=== PATIENT | female | born 1955 | race Caucasian/White ===

== ENCOUNTER 2023-11-22 13:49 | Emergency (ER) | payer MEDICARE, OTHER, SELFPAY ==
[2023-11-22] VITALS (7 sets, daily range): BP systolic 128–173; BP diastolic 69–89; BMI 32.9
[2023-11-22 14:31] LABS: % Basophils 0.2 % (0-2); % Eosinophils 2.1 % (0-6); % Immature Granulocytes 0.4 % (0-0.5); % Lymphocytes 22.2 % (20.5-51.1); % Neutrophils 67.1 % (42.2-75.2); Absolute Eosinophils 0.1 10^3/uL (0-0.7); Absolute Lymphocytes 1.1 10^3/uL (1.2-3.4); Absolute Monocytes 0.4 10^3/uL (0.1-0.6); Absolute Neutrophils 3.2 10^3/uL (1.4-6.5); Hematocrit 36.9 % (37.0-47.0); Mean Corp Hgb Conc. 35.2 g/dL (33.0-37.0); Mean Corpuscular Hgb 32.6 pg (27.0-31.0); Mean Corpuscular Volume 92.5 fL (81.0-99.0); Mean Platelet Volume 10.7 fL (7.4-10.4); Nucleated Red Blood Cells % 0 %; Platelet Count 161 10^3/uL (130-400); Red Blood Cell Count 3.99 10^6/uL (4.20-5.40); Red Cell Dist. Width 11.9 % (11.5-14.5); White Blood Cell Count 4.8 10^3/uL (4.8-10.8)
[2023-11-22 14:42] LABS: ALT (SGPT) 30 U/L (0-35); AST (SGOT) 36 U/L (14-36); Albumin 4.5 g/dl (3.5-5.0); Alkaline Phosphatase 71 U/L (38-126); Blood Urea Nitrogen 17 mg/dl (7-17); Calcium 9.1 mg/dl (8.4-10.2); Carbon Dioxide 25 mmol/L (22-30); Chloride 107 mmol/L (98-107); Glucose 106 mg/dl (70-99); Potassium 3.9 mmol/L (3.5-5.1); Sodium 138 mmol/L (135-145); Total Bilirubin 0.6 mg/dl (0.2-1.3); Total Protein 7.4 g/dl (6.3-8.2); eGFR > 60.00
--- NOTE | 2023-11-22 17:52 | ED.GENMED ---
History of Present Illness
General
Chief Complaint: Fainting Sensation
Time Seen by Provider: 11/22/23 14:51
Travel History
Have you had any contact with someone who has COVID-19?: No
Do you have any symptoms of coronavirus? Fever > 100 degrees, chills, cough, shortness of breath, sore throat, loss of taste or smell, muscle aches, or headache?: No
History of Present Illness
History of Present Illness:
68-year-old female presents to the emergency room complaining of feeling woozy or dizzy. Symptoms began while she was driving. Lasted for several minutes. No headache. No focal weakness numbness or tingling. Movement of the head seems to make
symptoms worse. Patient had a similar episode in July. No clear cause was found at that time.
Past History
Past History
ED Past Medical History: Hypercholesterolemia; Negative IDDM or NIDDM
ED Past Surgical History: Negative Cardiac
Patient has exhibited threatening behavior?: No
Social History
Tobacco: Former smoker
Alcohol: Occasional
Drug: None
Personal:
Living: with family
Employment: Retired
Family History
Family History: CAD
Phy Exam
Physical Exam
Physical Exam:
General: Awake, Alert, Oriented X3. No acute distress.
Vitals: unremarkable
Head: Atraumatic
Eyes: Pupils equal, EOMI, no nystagmus
Throat: Airway intact, no exudates
Neck: Trachea midline
Lungs: Clear and equal b/l
Heart: Regular rate, no murmurs
Abd: Soft, Nontender, No pulsatile mass
Neuro: Cranial nerves intact, muscle strength equal bilaterally, cerebellar exam normal
Skin: Warm, dry, no rash
Extremities: pulses equal b/l, no edema
Course
Orders/Labs/Results
Orders:
Orders
11/22/23 14:00
Electrocardiogram (*1) Urgent
Reason for Study: Other
Other Reason for Exam: near syncope
11/22/23 14:01
EKG- Treatment ONCE
11/22/23 14:22
Complete Blood Count/With Diff Urgent
Comprehensive Metabolic Panel Urgent
11/22/23 15:20
Pt Eval And Treat Urgent
Treatment: vestibular dysfunction
Activity Level: As Tolerated
Abnormal Lab Results
11/22/23
14:22
RBC 3.99 L 10^6/uL
(4.20-5.40)
Hct 36.9 L %
(37.0-47.0)
MCH 32.6 H pg
(27.0-31.0)
MPV 10.7 H fL
(7.4-10.4)
Absolute Lymphs (auto) 1.1 L 10^3/uL
(1.2-3.4)
Glucose 106 H mg/dl
(70-99)
11/22/23 14:22
11/22/23 14:22
Vital Signs
Initial and Last Documented VS:
Initial Vital Signs
Temp Pulse Resp BP Pulse Ox
97.9 F 93 16 173/89 98
11/22/23 13:57 11/22/23 13:57 11/22/23 13:57 11/22/23 13:57 11/22/23 13:57
Last Documented Vital Signs
Temp Pulse Resp BP Pulse Ox
97.9 F 80 17 140/80 100
11/22/23 13:57 11/22/23 17:55 11/22/23 17:55 11/22/23 17:55 11/22/23 15:15
MDM/Problems Addressed
Differential Diagnosis Includes:
Benign paroxysmal positional vertigo, labyrinthitis, dehydration, dysrhythmia
MDM/Problems Addressed:
Patient has a normal neurologic exam here in the emergency room. That she is nervous to get up and move when she actually does so she seems to be asymptomatic. My suspicion is that this is benign paroxysmal positional vertigo. However will
recommend patient follow-up with her primary care doctor and ENT for further evaluation. No physical exam findings to suggest a central cause for her symptoms.
*Pulse Oximetry
Patient hypoxic: no
*EKG
Interpreted by ED Provider?: Yes
Interpretation: normal
Heart Rate: 86
Rate: normal
Rhythm: sinus
[place]: normal axis
Interval: normal interval
QRS Pattern: normal QRS
Ischemia: no ischemia
*Associate Professor Of Philosophy Interpretation
Rate: normal
Interpretation: normal
Rhythm: sinus
*Critical Care Note
Total Time (30-74mins, 75-104mins- exclusive of procedures): Not Applicable
ED Attending Note
-
Portions of this chart may have been created with voice recognition software.� Occasional wrong word or��sound alike� substitutions may have occurred due to the inherent limitations of voice recognition software.
Discharge Plan
Departure
Patient Disposition: Home (Routine Discharge)
Date of Disposition: 11/22/23
Time of Disposition: 17:52
Patient with high blood pressure during this ER visit?: Yes
Condition: Good
Discharge Problem:
Benign paroxysmal positional vertigo, Near syncope
Instructions: Near Fainting (DC), Vertigo ED, BLOOD PRESSURE
Prescriptions:
No Action
multivitamin 1 EACH tablet
1 ea PO DAILY
rosuvastatin 5 MG tablet
5 mg PO HS
Referrals:
Milly Allan MD [Family Provider] -
Eli Way MD [Active] -
Interventions
Interventions:
*Risk Screen - Suicide Last Done: 11/22/23 14:41
*General Assessment Last Done: 11/22/23 14:41
*Neglect/Abuse Screening Last Done: 11/22/23 14:41
*ED COVID-19 Vaccine History Last Done: 11/22/23 13:57
*Nursing Disposition Last Done: 11/22/23 18:00
ED- Neurological Assessment Last Done: 11/22/23 14:41
ED- Cardiac Assessment Last Done: 11/22/23 14:41
Discharge Date and Time
Discharge Date/Time: 11/22/23 18:01
== END 2023-11-22 18:01 | disposition home or self-care (01) ==
LOC: EMR 13:49
PROVIDERS: EMERGENCY PHYSICIAN Emergency Medicine; FAMILY PHYSICIAN Family Medicine
DX: H81.10 Benign paroxysmal vertigo, unspecified ear (principal); R55 Syncope and collapse; E78.00 Pure hypercholesterolemia, unspecified; Z82.49 Family history of ischemic heart disease and other diseases of the circulatory system; Z87.891 Personal history of nicotine dependence
CPT/HCPCS: 99283; 80053; 85025; 93005

== ENCOUNTER 2024-02-08 04:35 | Emergency (ER) | payer MEDICARE, OTHER, SELFPAY ==
[2024-02-08 04:39] VITALS: BP 167/87
[2024-02-08 04:55] VITALS: BP 153/75
[2024-02-08 05:00] VITALS: BP 139/65
--- NOTE | 2024-02-08 05:00 | ED.GENMED ---
History of Present Illness
General
Chief Complaint: Heart Rate Problem
Source: patient
Exam Limitations: none
Time Seen by Provider: 02/08/24 04:47
Travel History
Have you had any contact with someone who has COVID-19?: No
Do you have any symptoms of coronavirus? Fever > 100 degrees, chills, cough, shortness of breath, sore throat, loss of taste or smell, muscle aches, or headache?: No
History of Present Illness
History of Present Illness:
See MDM
Past History
Past History
ED Past Medical History: Hypercholesterolemia; Negative IDDM or NIDDM
ED Past Surgical History: Negative Cardiac
Patient has exhibited threatening behavior?: No
Social History
Tobacco: Former smoker
Alcohol: Occasional
Drug: None
Personal:
Living: with family
Employment: Retired
Family History
Family History: CAD
Phy Exam
Physical Exam
Physical Exam:
See MDM
Course
Orders/Labs/Results
Orders:
Orders
02/08/24 04:44
ECG [Electrocardiogram (*1)] Urgent
Reason for Study: Palpitations
Cardiology Consult: Osvaldo Duke
02/08/24 04:45
EKG- Treatment ONCE
02/08/24 05:25
Comprehensive Metabolic Panel Urgent
Free T4 Urgent
Magnesium Urgent
TSH Reflex To Free T4 Urgent
02/08/24 05:48
Complete Blood Count/With Diff Urgent
Comment: REDRAW
Abnormal Lab Results
02/08/24 02/08/24
05:25 05:48
WBC 3.5 L 10^3/uL
(4.8-10.8)
RBC 3.74 L 10^6/uL
(4.20-5.40)
Hgb 11.9 L g/dL
(12.0-16.0)
Hct 34.9 L %
(37.0-47.0)
MCH 31.8 H pg
(27.0-31.0)
MPV 11.4 H fL
(7.4-10.4)
Absolute Lymphs (auto) 1.0 L 10^3/uL
(1.2-3.4)
Monocytes % 9.8 H %
(1.7-9.3)
Chloride 109 H mmol/L
(98-107)
Glucose 102 H mg/dl
(70-99)
TSH (Reflex) 6.08 H uIU/ml
(0.47-4.68)
02/08/24 05:48
02/08/24 05:25
Vital Signs
Initial and Last Documented VS:
Initial Vital Signs
Temp Pulse Resp BP Pulse Ox
98.6 F 92 20 167/87 98
02/08/24 04:39 02/08/24 04:39 02/08/24 04:39 02/08/24 04:39 02/08/24 04:39
Last Documented Vital Signs
Temp Pulse Resp BP Pulse Ox
98.6 F 75 11 139/65 100
02/08/24 04:39 02/08/24 05:30 02/08/24 05:30 02/08/24 05:00 02/08/24 05:30
MDM/Problems Addressed
Differential Diagnosis Includes:
HPI and MDM Narrative:
68-year-old female presenting for palpitations. Patient states she woke up and felt that her heart was skipping. 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 When she was diagnosed with PVCs, she did see cardiology and
have a Holter monitor. She denies chest pain or shortness of breath. On arrival, she thinks her symptoms are improving somewhat. Patient was placed on the monitor immediately and she does have evidence of PVCs. EKG shows sinus rhythm. Will
obtain basic blood work.
Patient states she is on her last day of sulfa with active UTI. We discussed this could be side effects of medication
Physical exam
General: Well appearing and non-toxic
HEENT: protecting airway
Neck: appears supple
CV: No evidence of cyanosis. Regular rate and rhythm
Resp: No accessory muscle use
Abd: Non-distended
Extremities: No deformities. No leg edema
Neuro: alert
Psych: Normal affect
Skin: Intact
Problems Addressed including Acute and Chronic Conditions affecting care:
1. Palpitations
Acuity: acute
Prognosis: stable
Details: Likely PVCs. EKG sinus rhythm. Will obtain basic blood work
Updates
Patient remains well-appearing nontoxic. Intermittent PVCs noted. We discussed mildly elevated TSH and follow-up with PCP and Holter monitor
Differential Diagnosis (but not limited to): PVCs, paroxysmal A-fib, hyperthyroidism
Testing considered: Troponin but she denies chest pain
Drug therapy (if applicable): OTC meds, please see d/c instruction regarding Rx drugs
Amount and/or Complexity of Data Reviewed
Clinical info obtained from: Patient
External data reviewed: N/A
Labs I independently reviewed (but not limited to): Elevated TSH
Radiology: N/A
Pulse Ox: not hypoxic
EKG independently reviewed: Sinus rhythm, normal axis, no STEMI
Blue Print Control Clerk: Sinus rhythm, intermittent PVCs
Critical Care: N/A
Risk of Complication:
Social Determinants of health: Good social support
Discussed with other providers: N/A
Escalation of Care includes Admit/Obs: After being observed in the Emergency Department, pt stable for discharge.
Occasional wrong word or 'sound a like' substitutions may have occurred due to the inherent limitations of voice recognition software. Read the chart carefully and recognize, using context, where substitutions have occurred.
*Critical Care Note
Total Time (30-74mins, 75-104mins- exclusive of procedures): Not Applicable
ED Attending Note
-
Portions of this chart may have been created with voice recognition software.� Occasional wrong word or��sound alike� substitutions may have occurred due to the inherent limitations of voice recognition software.
Discharge Plan
Departure
Patient Disposition: Home (Routine Discharge)
Date of Disposition: 02/08/24
Time of Disposition: 06:39
Patient with high blood pressure during this ER visit?: No
Discharge Problem:
Heart palpitations
Instructions: Palpitations (DC)
Prescriptions:
No Action
multivitamin 1 EACH tablet
1 ea PO DAILY
rosuvastatin 5 MG tablet
5 mg PO HS
Referrals:
Milly Allan MD [Family Provider] -
Activity Restrictions/Additional Instructions:
Please return for any worsening symptoms.
You may return at any time if you have further concerns.
Please follow up with your doctor at the first available appointment, preferably this week. Please discuss another Holter monitor.
Thank you for choosing [facility].
Interventions
Interventions:
*Risk Screen - Suicide Last Done: 02/08/24 04:39
*General Assessment Last Done: 02/08/24 04:39
*Neglect/Abuse Screening Last Done: 02/08/24 04:39
ED- Fall Risk Assessment Last Done: 02/08/24 04:39
*ED COVID-19 Vaccine History Last Done: 02/08/24 04:39
ED- Cardiac Assessment Last Done: 02/08/24 04:55
ED- Pulmonary Assessment Last Done: 02/08/24 04:55
Discharge Date and Time
Print Language: ALBANIAN
[2024-02-08 05:51] LABS: ALT (SGPT) 26 U/L (0-35); AST (SGOT) 30 U/L (14-36); Albumin 4.1 g/dl (3.5-5.0); Alkaline Phosphatase 61 U/L (38-126); Blood Urea Nitrogen 15 mg/dl (7-17); Calcium 9.6 mg/dl (8.4-10.2); Carbon Dioxide 24 mmol/L (22-30); Chloride 109 mmol/L (98-107); Glucose 102 mg/dl (70-99); Magnesium 2.1 mg/dl (1.6-2.3); Potassium 4.8 mmol/L (3.5-5.1); Sodium 139 mmol/L (135-145); Total Bilirubin 0.4 mg/dl (0.2-1.3); Total Protein 6.8 g/dl (6.3-8.2); eGFR > 60.00
[2024-02-08 06:00] VITALS: BP 111/74
[2024-02-08 06:02] LABS: % Basophils 0.3 % (0-2); % Eosinophils 5.2 % (0-6); % Immature Granulocytes 0.3 % (0-0.5); % Lymphocytes 29.6 % (20.5-51.1); % Monocytes 9.8 % (1.7-9.3); % Neutrophils 54.8 % (42.2-75.2); Absolute Eosinophils 0.2 10^3/uL (0-0.7); Absolute Monocytes 0.3 10^3/uL (0.1-0.6); Absolute Neutrophils 1.9 10^3/uL (1.4-6.5); Hematocrit 34.9 % (37.0-47.0); Hemoglobin 11.9 g/dL (12.0-16.0); Mean Corp Hgb Conc. 34.1 g/dL (33.0-37.0); Mean Corpuscular Hgb 31.8 pg (27.0-31.0); Mean Corpuscular Volume 93.3 fL (81.0-99.0); Mean Platelet Volume 11.4 fL (7.4-10.4); Nucleated Red Blood Cells % 0 %; Platelet Count 132 10^3/uL (130-400); Red Blood Cell Count 3.74 10^6/uL (4.20-5.40); Red Cell Dist. Width 11.7 % (11.5-14.5); White Blood Cell Count 3.5 10^3/uL (4.8-10.8)
[2024-02-08 06:21] LABS: TSH Reflex To Free T4 6.08 uIU/ml (0.47-4.68)
[2024-02-08 06:50] LABS: Free T4 1.12 ng/dl (0.78-2.19)
[2024-02-08 07:00] VITALS: BP 104/61
== END 2024-02-08 07:10 | disposition home or self-care (01) ==
LOC: EMR 04:35
PROVIDERS: EMERGENCY PHYSICIAN Student in an Organized Health Care Education/Training Program; FAMILY PHYSICIAN Family Medicine
DX: R00.2 Palpitations (principal); I49.3 Ventricular premature depolarization; N39.0 Urinary tract infection, site not specified; E78.00 Pure hypercholesterolemia, unspecified; Z87.891 Personal history of nicotine dependence; Z88.8 Allergy status to other drugs, medicaments and biological substances; Z91.041 Radiographic dye allergy status
CPT/HCPCS: 99283; 80053; 83735; 84439; 84443; 85025; 93005

== ENCOUNTER → 2024-04-08 12:57 | Outpatient (REF) | payer MEDICARE, OTHER, SELFPAY | LOC: WDC 12:57 | PROVIDERS: ATTENDING PHYSICIAN Family Medicine | DX: Z12.31 Encounter for screening mammogram for malignant neoplasm of breast (principal) | CPT/HCPCS: 77063; 77067 ==

== ENCOUNTER → 2024-04-15 06:32 | Day surgery (SDC) | payer MEDICARE, OTHER, SELFPAY | LOC: GI 06:32 | PROVIDERS: ATTENDING PHYSICIAN Internal Medicine | DX: Z12.11 Encounter for screening for malignant neoplasm of colon (principal); K57.30 Diverticulosis of large intestine without perforation or abscess without bleeding; K62.1 Rectal polyp; K64.8 Other hemorrhoids | CPT/HCPCS: 45380; 88305 ==

== ENCOUNTER → 2024-05-14 17:02 | Outpatient (REF) | payer MEDICARE, OTHER, SELFPAY | LOC: MRI 3T 17:02 | PROVIDERS: ATTENDING PHYSICIAN Specialist; FAMILY PHYSICIAN Family Medicine | DX: H53.2 Diplopia (principal); R42 Dizziness and giddiness | CPT/HCPCS: 70544; 70547; 70553; A9575 ==

== ENCOUNTER → 2024-12-24 14:12 | Outpatient (REF) | payer MEDICARE, OTHER, SELFPAY | LOC: HWRAD 14:12 | PROVIDERS: ATTENDING PHYSICIAN Nurse Practitioner Adult Health | DX: M25.551 Pain in right hip (principal); M25.552 Pain in left hip | CPT/HCPCS: 73522 ==

== ENCOUNTER 2025-06-23 21:49 | Emergency (ER) | payer MEDICARE, OTHER, SELFPAY ==
[2025-06-23 21:50] VITALS: BMI 31.5
[2025-06-23 21:52] VITALS: BP 153/85
[2025-06-23 22:28] VITALS: BP 139/99
[2025-06-23 23:00] VITALS: BP 141/64
--- NOTE | 2025-06-23 23:58 | ED.GENMED ---
History of Present Illness
General
Chief Complaint: Heart Rate Problem
Source: patient and spouse
Exam Limitations: none
Time Seen by Provider: 06/23/25 22:37
Nursing documentation reviewed up to this point in time: agreed with
History of Present Illness
History of Present Illness:
70-year-old female limited past medical history presents with strong pulse rate while lying down could feel it in her ear felt short of breath, occurred while she was at the [employer], no symptoms now, no chest pain, no fever no diaphoresis no
abdominal pain no prior episodes, no history of hypertension history of diabetes,
Past History
Past History
ED Past Medical History: Hypercholesterolemia; Negative IDDM or NIDDM
ED Past Surgical History: Negative Cardiac
Patient has exhibited threatening behavior?: No
Social History
Tobacco: Former smoker
Alcohol: Occasional
Drug: None
Personal:
Living: with family
Employment: Retired
Family History
Family History: CAD
Review of Systems
Review of Systems
All Other Systems: Not applicable
Constitutional: Denies fever or fatigue
EENT: Reports no symptoms
Respiratory: Reports trouble breathing; Denies cough
Cardiac: Reports palpitations; Denies chest pain, diaphoresis or syncope
: Reports no symptoms
Musculoskeletal: Reports no symptoms
Skin: Reports no symptoms
Neurological: Reports no symptoms
Endocrine: Reports no symptoms
Phy Exam
Physical Exam
Physical Exam:
Physical Exam
General: no apparent distress, not acutely ill
Neck: No jaundice
Heart: s1/s2 regular rate and rhythm, no murmur. equal radial pulses.
Lungs: no acute respiratory distress. clear bilaterally
Abdomen: Not tender
Neuro: alert and oriented. no focal neurological deficits
Skin: no rash
Psychiatric: well kept. interactive and cooperative
Extremities: no edema. no calf tenderness.
Course
Orders/Labs/Results
Orders:
Orders
06/23/25 21:50
Electrocardiogram (*1) Urgent
Reason for Study: Palpitations
EKG- Treatment ONCE
06/23/25 23:29
Electrocardiogram (*1) Stat
Reason for Study: Other
Other Reason for Exam: chest pain
Cardiac Monitoring- Treatment ONCE
EKG- Treatment ONCE
Complete Blood Count/With Diff Urgent
Comprehensive Metabolic Panel Urgent
Magnesium Urgent
NT-proBNP Urgent
TSH Urgent
Troponin I Urgent
CR Chest - 2 Views Urgent
Comment:
Reason For Exam: sob
Abnormal Lab Results
06/24/25
00:04
WBC 4.4 L 10^3/uL
(4.8-10.8)
RBC 3.76 L 10^6/uL
(4.20-5.40)
Hct 36.5 L %
(37.0-47.0)
MCH 31.9 H pg
(27.0-31.0)
MCHC 32.9 L g/dL
(33.0-37.0)
MPV 11.2 H fL
(7.4-10.4)
Absolute Lymphs (auto) 1.1 L 10^3/uL
(1.2-3.4)
Monocytes % 11.6 H %
(1.7-9.3)
Chloride 108 H mmol/L
(98-107)
Glucose 107 H mg/dl
(70-99)
06/24/25 00:04
06/24/25 00:04
Vital Signs
Initial and Last Documented VS:
Initial Vital Signs
Temp Pulse Resp BP Pulse Ox
97.6 F 87 16 153/85 99
06/23/25 21:52 06/23/25 21:52 06/23/25 21:52 06/23/25 21:52 06/23/25 21:52
Last Documented Vital Signs
Temp Pulse Resp BP Pulse Ox
97.8 F 72 11 123/63 100
06/23/25 22:00 06/24/25 00:30 06/24/25 00:30 06/24/25 00:00 06/24/25 00:02
MDM/Problems Addressed
Differential Diagnosis Includes:
Palpitations PVCs symptomatic thyroid doubt ACS doubt heart failure perhaps anemia
MDM/Problems Addressed:
Rapid heart rate shortness of breath
Chronic conditions affecting care:
Hyperlipidemia
Acute Exacerbation and/or Progression of Chronic Illness:
Hyper lipid
*Radiology
Radiology exam reviewed: preliminary read by ED provider
*Pulse Oximetry
SaO2: 100
Oxygen Mode of Delivery: Room air
Patient hypoxic: no
*EKG
Interpreted by ED Provider?: Yes
Interpretation: normal
Comparison EKG: no comparison EKG present
Heart Rate: 78
Rate: normal
Rhythm: sinus
Ischemia: no ischemia
*Aircraft Systems Repairer Interpretation
Rate: normal
Interpretation: normal
Rhythm: sinus
*Critical Care Note
Total Time (30-74mins, 75-104mins- exclusive of procedures): Not Applicable
Update Note
Update Note:
1:15 AM update labs noted chest x-ray noted formal report pending no arrhythmia on telemetry
ED Attending Note
-
Portions of this chart may have been created with voice recognition software.� Occasional wrong word or��sound alike� substitutions may have occurred due to the inherent limitations of voice recognition software.
Discharge Plan
Departure
Patient Disposition: Home (Routine Discharge)
Date of Disposition: 06/24/25
Time of Disposition: 01:23
Patient with high blood pressure during this ER visit?: No
Condition: Good
Discharge Problem:
Heart palpitations, Breath, shortness
Instructions: Palpitations (DC)
Prescriptions:
No Action
multivitamin 1 EACH tablet
1 ea PO DAILY
rosuvastatin 5 MG tablet
5 mg PO HS
Referrals:
Milly Allan MD [Family Provider, Family Practice] - Follow up in 2-3 days
Interventions
Interventions:
*Risk Screen - Suicide Last Done: 06/23/25 21:52
*Neglect/Abuse Screening Last Done: 06/23/25 21:52
ED- Cardiac Assessment Last Done: 06/23/25 22:33
ED- Pulmonary Assessment Last Done: 06/23/25 22:33
Discharge Date and Time
Print Language: SLOVENIAN
[2025-06-24] VITALS: BP 123/63
[2025-06-24 00:41] LABS: ALT (SGPT) 23 U/L (0-35); AST (SGOT) 28 U/L (14-36); Albumin 4.5 g/dl (3.5-5.0); Alkaline Phosphatase 51 U/L (38-126); Blood Urea Nitrogen 17 mg/dl (7-17); Calcium 9.6 mg/dl (8.4-10.2); Carbon Dioxide 27 mmol/L (22-30); Chloride 108 mmol/L (98-107); Estimated Creatinine Clearance 79 ml/min; Glucose 107 mg/dl (70-99); Magnesium 2.2 mg/dl (1.6-2.3); Potassium 4.0 mmol/L (3.5-5.1); Sodium 142 mmol/L (135-145); Total Protein 6.9 g/dl (6.3-8.2); eGFR > 60.00
[2025-06-24 00:56] LABS: Hematocrit 36.5 % (37.0-47.0); Hemoglobin 12.0 g/dL (12.0-16.0); Mean Corp Hgb Conc. 32.9 g/dL (33.0-37.0); Mean Corpuscular Volume 97.1 fL (81.0-99.0); Nucleated Red Blood Cells % 0 %; Platelet Count 131 10^3/uL (130-400); Red Cell Dist. Width 12.0 % (11.5-14.5)
[2025-06-24 01:11] LABS: TSH 2.78 uIU/ml (0.47-4.68)
[2025-06-24 01:14] LABS: Troponin I < 0.012 ng/ml
== END 2025-06-24 02:12 | disposition home or self-care (01) ==
LOC: EMR 21:49
PROVIDERS: EMERGENCY PHYSICIAN Emergency Medicine; FAMILY PHYSICIAN Family Medicine
DX: R00.2 Palpitations (principal); R06.02 Shortness of breath; E78.00 Pure hypercholesterolemia, unspecified; Z87.891 Personal history of nicotine dependence
CPT/HCPCS: 99284; 71046; 80053; 83735; 83880; 84443; 84484; 85025; 93005